=== PATIENT | female | born 1960 | race Caucasian/White ===

== ENCOUNTER 2021-08-08 14:56 | Emergency (ER) | payer OTHER ==
[~2021-08-08 14:56] MED LIST: BENTYL10 MG PO; CLARITIN10 MG PO; FENOFIBRATE160 MG PO; FLONASE 0.05% N16 GM; IPRAT-ALBUT 0.5-3 ML INH; LASIX40 MG PO; LIPITOR TAB 2020 MG PO; LITHIUM CARBON300 M1 PO; PERCOCET 10-321 EACH PO; PHENERGAN 25 MG25 M1 PO; PLAVIX 75 MG TA75 MG PO; POTASSIUM CHLO20 ME1 PO; PROTONIX40 MG PO; SYMBICORT 16010.2 GM INH; SYNTHROID112 MCG PO; TRADJENTA5 MG PO; TRAZODONE HCL150 MG PO; TUDORZA PRESS400 MCG INH; VALIUM 5 MG TAB5 MG PO; VENTOLIN HFA8 GM INH; VOLTAREN100 GM TOP; ZANAFLEX4 M1 PO; ZETIA10 MG PO; ZOFRAN 8 MG TAB8 MG PO
== END 2021-08-08 16:49 | disposition home or self-care (01) ==
LOC: ER1 14:56
DX: S30.0XXA Contusion of lower back and pelvis, initial encounter (principal); E11.9 Type 2 diabetes mellitus without complications; F17.210 Nicotine dependence, cigarettes, uncomplicated; I50.9 Heart failure, unspecified; Z88.5 Allergy status to narcotic agent; Z79.82 Long term (current) use of aspirin; X58.XXXA Exposure to other specified factors, initial encounter
CPT/HCPCS: 72220; 99283